=== PATIENT | male | born 1955 | race African-American/Black ===

== ENCOUNTER 2016-09-12 15:24 | Emergency (ER) | payer OTHER, BC, MEDICAID ==
[~2016-09-12] VITALS: Ht 175.3 cm; Wt 80.0 kg
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
[2016-09-12] MEDS ORDERED: IBUPROFEN 400 MG TAB PO ONE (18:00)
[2016-09-12] MEDS ORDERED: TETANUS/DIPHTHERIA TOXOID ADULT 0.5 ML VIAL IM ONE (18:00)
[2016-09-12] MEDS ORDERED: ACETAMINOPHEN/HYDROcodone 325 MG/5 MG TAB PO ONE (18:00)
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
[2016-09-12] MEDS ORDERED: NORC5TAB PO (19:47)
[2016-09-12] MEDS ORDERED: ORPH100T99 PO (19:47)
[2016-09-12] MEDS ORDERED: IBUP-232 PO (19:47)
== END 2016-09-12 20:31 | disposition home or self-care (01) ==
LOC: NEPD 15:24
DX: S62.307A Unspecified fracture of fifth metacarpal bone, left hand, initial encounter for closed fracture (principal); M25.552 Pain in left hip; V43.52XA Car driver injured in collision with other type car in traffic accident, initial encounter; Z23 Encounter for immunization
CPT/HCPCS: 72125; 72192; 73090; 73120; 90471; 90714; 96372

== ENCOUNTER 2016-09-15 13:42 | Emergency (ER) | payer MEDICAID, OTHER ==
[~2016-09-15 13:42] MED LIST: IBUP-232 PO; NORC5TAB PO; ORPH100T99 PO
[2016-09-15 13:44] VITALS: BP 136/86; PULSE 70; RESP 16; TEMP 98.3; O2SAT 97
== END 2016-09-15 14:00 | disposition left against medical advice (07) ==
LOC: NED 13:42
DX: M25.539 Pain in unspecified wrist (principal); Z53.21 Procedure and treatment not carried out due to patient leaving prior to being seen by health care provider
CPT/HCPCS: 99281

== ENCOUNTER 2016-09-15 16:29 | Emergency (ER) | payer OTHER, MEDICAID ==
[~2016-09-15] VITALS: Ht 175.3 cm; Wt 80.0 kg
[2016-09-15 16:31] VITALS: BP 135/80; PULSE 68; RESP 16; TEMP 98.5; O2SAT 97
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
[2016-09-15 17:06] VITALS: BP 128/81; TEMP 97.8
== END 2016-09-15 17:10 | disposition home or self-care (01) ==
LOC: NEPK 16:29
DX: M54.9 Dorsalgia, unspecified (principal); Z79.899 Other long term (current) drug therapy
CPT/HCPCS: 99282